=== PATIENT | male | born 1985 | race Caucasian/White ===

== ENCOUNTER 2023-08-28 13:32 | Emergency (ER) | payer BC ==
[~2023-08-28] VITALS: Ht 177.8 cm; Wt 90.7 kg
[2023-08-28 14:02] VITALS: BP 121/78; PULSE 89; RESP 18; TEMP 98.2; O2SAT 98
[2023-08-28 17:02] VITALS: BP 122/70; PULSE 74; RESP 17; O2SAT 98
== END 2023-08-28 17:00 | disposition home or self-care (01) ==
LOC: MED 13:32
DX: H53.8 Other visual disturbances (principal); I10 Essential (primary) hypertension; E78.5 Hyperlipidemia, unspecified; Z88.2 Allergy status to sulfonamides; Z88.8 Allergy status to other drugs, medicaments and biological substances; Z79.899 Other long term (current) drug therapy
CPT/HCPCS: 70450; 99284